=== PATIENT | male | born 1960 | race Caucasian/White ===

== ENCOUNTER 2021-10-31 12:30 | Emergency (ER) | payer OTHER ==
[~2021-10-31] VITALS: Ht 177.8 cm; Wt 56.7 kg
[~2021-10-31 12:30] MED LIST: CEPH500 PO; Cyclobenzaprine5 MG; DULO60 PO; GABA300 PO; HYDCHL25 PO; LORA1 PO; MELA3 PO; METO25ER PO; NAPR500 PO; Omeprazole20 M1 PO; SULTRIDS PO; TRAZ50 PO
== END 2021-10-31 14:18 | disposition home or self-care (01) ==
LOC: ER 12:30
DX: S70.02XA Contusion of left hip, initial encounter (principal); I10 Essential (primary) hypertension; Z88.8 Allergy status to other drugs, medicaments and biological substances; Z79.899 Other long term (current) drug therapy; W19.XXXA Unspecified fall, initial encounter
CPT/HCPCS: 73502; 99283

== ENCOUNTER 2021-11-03 14:30 | Emergency (ER) | payer OTHER ==
[~2021-11-03] VITALS: Ht 177.8 cm; Wt 54.4 kg
[2021-11-03 15:53] LABS: BASOPHILS ABSOLUTE AUTO 0.04 K/mm3 (0.00-0.23); BASOPHILS PERCENT AUTO 1 % (0-2); EOSINOPHILS ABSOLUTE AUTO 0.02 K/mm3 (0.00-0.68); EOSINOPHILS PERCENT AUTO 0 % (0-6); Hematocrit 35.8 % (37.0-53.0); Hemoglobin 12.1 g/dL (13.5-17.5); IMMATURE GRAN ABSOLUTE AUTO 0.02 K/mm3 (0.00-0.10); IMMATURE GRAN PERCENT AUTO 0 % (0-1); LYMPHOCYTES ABSOLUTE AUTO 1.44 K/mm3 (0.84-5.20); LYMPHOCYTES PERCENT AUTO 21 % (21-46); MONOCYTES ABSOLUTE AUTO 0.88 K/mm3 (0.16-1.47); MONOCYTES PERCENT AUTO 13 % (4-13); Mean Corpuscular HGB 31.8 pg (26.0-34.0); Mean Corpuscular HGB Conc 33.8 g/dL (31.5-36.5); Mean Corpuscular Volume 94 fL (80-100); NEUTROPHILS ABSOLUTE AUTO 4.47 K/mm3 (1.96-9.15); NEUTROPHILS PERCENT AUTO 65 % (41-73); Platelet Count 210 K/mm3 (150-400); RDW Coefficient Variation 13.1 % (11.7-14.2); RDW Standard Deviation 44.9 fL (35.1-46.3); White Blood Cell Count 6.87 K/mm3 (4.00-11.30)
[2021-11-03 15:57] LABS: Albumin, Blood 4.4 g/dL (3.4-5.0); Albumin/Globulin Ratio 1.5 (0.8-1.8); Bilirubin, Total 1.3 mg/dL (0.1-1.0); Bun/Creatinine Ratio 13.9 (12.0-20.0); Calcium, Blood 8.9 mg/dL (8.5-10.1); Creatinine, Blood 1.37 mg/dL (0.60-1.20); Globulin, Blood 2.9 g/dL (2.2-4.0); Potassium, Blood 3.6 mmol/L (3.5-5.5); Total Protein, Blood 7.3 g/dL (6.4-8.2); Troponin I 0.058 ng/mL (0.000-0.040)
[2021-11-03] MEDS ORDERED: ASPIR 8181 M1 PO (17:29)
[2021-11-03] MEDS ORDERED: Nitrostat0.4 MG SL (17:29)
== END 2021-11-03 17:30 | disposition home or self-care (01) ==
LOC: ER 14:30
PROVIDERS: Physician Assistant
DX: R07.89 Other chest pain (principal); R77.8 Other specified abnormalities of plasma proteins; R11.2 Nausea with vomiting, unspecified; I10 Essential (primary) hypertension; Z79.899 Other long term (current) drug therapy; Z88.8 Allergy status to other drugs, medicaments and biological substances
CPT/HCPCS: 80053; 83690; 84484; 85025; 93005; 93010; 99285-25

== ENCOUNTER 2022-12-19 01:59 | Emergency (ER) | payer OTHER ==
[~2022-12-19] VITALS: Ht 177.8 cm; Wt 63.5 kg
[~2022-12-19 01:59] MED LIST changes: +ASPIR 8181 M1 PO; +LISI20 PO; +Nitrostat0.4 MG SL
== END 2022-12-19 06:38 | disposition home or self-care (01) ==
LOC: ER 01:59
DX: R68.83 Chills (without fever) (principal); I10 Essential (primary) hypertension; Z79.82 Long term (current) use of aspirin; Z79.899 Other long term (current) drug therapy
CPT/HCPCS: 99283

== ENCOUNTER 2023-01-06 16:24 | Emergency (ER) | payer OTHER ==
[~2023-01-06] VITALS: Ht 177.8 cm; Wt 66.7 kg
[2023-01-06 17:00] LABS: BASOPHILS ABSOLUTE AUTO 0.05 K/mm3 (0.00-0.23); BASOPHILS PERCENT AUTO 1 % (0-2); EOSINOPHILS ABSOLUTE AUTO 0.05 K/mm3 (0.00-0.68); EOSINOPHILS PERCENT AUTO 1 % (0-6); Hematocrit 37.8 % (37.0-53.0); IMMATURE GRAN ABSOLUTE AUTO 0.03 K/mm3 (0.00-0.10); IMMATURE GRAN PERCENT AUTO 0 % (0-1); LYMPHOCYTES ABSOLUTE AUTO 1.62 K/mm3 (0.84-5.20); LYMPHOCYTES PERCENT AUTO 20 % (21-46); MONOCYTES ABSOLUTE AUTO 0.84 K/mm3 (0.16-1.47); MONOCYTES PERCENT AUTO 10 % (4-13); Mean Corpuscular HGB 32.1 pg (26.0-34.0); Mean Corpuscular HGB Conc 34.4 g/dL (31.5-36.5); Mean Corpuscular Volume 93 fL (80-100); Mean Platelet Volume 10.5 fL (9.1-12.4); NEUTROPHILS ABSOLUTE AUTO 5.53 K/mm3 (1.96-9.15); NEUTROPHILS PERCENT AUTO 68 % (41-73); Platelet Count 205 K/mm3 (150-400); RDW Standard Deviation 44.5 fL (35.1-46.3); Red Blood Cell Count 4.05 M/mm3 (4.30-5.90); White Blood Cell Count 8.12 K/mm3 (4.00-11.30)
[2023-01-06 17:19] LABS: Albumin/Globulin Ratio 1.3 (0.8-1.8); Bilirubin, Total 0.8 mg/dL (0.1-1.0); Bun/Creatinine Ratio 25.4 (12.0-20.0); Calcium, Blood 9.2 mg/dL (8.5-10.1); Creatinine, Blood 1.14 mg/dL (0.60-1.20); Globulin, Blood 3.1 g/dL (2.2-4.0); Potassium, Blood 3.8 mmol/L (3.5-5.5); Total Protein, Blood 7.1 g/dL (6.4-8.2)
== END 2023-01-06 22:44 | disposition home or self-care (01) ==
LOC: ER 16:24
PROVIDERS: Student in an Organized Health Care Education/Training Program
DX: I10 Essential (primary) hypertension (principal); R07.9 Chest pain, unspecified; Z88.6 Allergy status to analgesic agent; Z79.899 Other long term (current) drug therapy; Z79.82 Long term (current) use of aspirin
CPT/HCPCS: 36415; 71046; 80053; 84484; 85025; 93005; 93010; 99285-25

== ENCOUNTER 2023-02-09 11:19 | Emergency (ER) | payer OTHER ==
[~2023-02-09] VITALS: Ht 177.8 cm; Wt 68.0 kg
== END 2023-02-09 14:38 | disposition home or self-care (01) ==
LOC: ER 11:19
DX: M54.2 Cervicalgia (principal); W18.30XA Fall on same level, unspecified, initial encounter; Z88.8 Allergy status to other drugs, medicaments and biological substances; Z79.899 Other long term (current) drug therapy; Z79.82 Long term (current) use of aspirin; I10 Essential (primary) hypertension
CPT/HCPCS: 70450; 72125

== ENCOUNTER 2023-03-30 09:20 | Inpatient (IN) | payer OTHER ==
[~2023-03-30] VITALS: Ht 177.8 cm; Wt 58.5 kg
[2023-03-30] MEDS ORDERED: metoprolol succinate ×2 (10:04)
[2023-03-30] MEDS ORDERED: NEURONTIN300 MG PO ×2 (10:04)
[2023-03-30 13:50] VITALS: BP 157/82
[2023-03-30 14:53] VITALS: BP 137/78
--- NOTE | 2023-03-30 15:20 | NUR ---
PT PLACED TO WALL SUCTION AT -20MM H2O PER DR. EDOUARD. OCCASSIONAL LEVEL 1 AIR LEAK PRESENT. PT TOLERATING WELL. PT REPORTS MINIMAL PAIN.
--- NOTE | 2023-03-30 15:58 | NUR ---
ARRIVAL TO ROOM PT ARRIVED TO THE FLOOR AT APPROX 1430. PT A&OX3, DID NOT KNOW THE YEAR, DATE, OR DAY. PT HAS A CHEST TUBE IN PLACE TO WATER SEAL L LATERAL, NO AIR LEAKAGE OR CREPITUS, DIMINISHED LUNG SOUNDS IN THE MID & BASES. PT AMB WITH FWW AT BASELINE. 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
--- NOTE | 2023-03-30 16:30 | NUR ---
DR. EDOUARD ROUNDED DR. EDOUARD NOTIFIED OF OCCASIONAL LOW HR ON MONITOR DOWN TO 37, UNSURE IF THIS IS ACCURATE, PT PLACED ON TELE FOR SAFETY.
--- NOTE | 2023-03-30 17:58 | NUR ---
SHIFT SUMMARY PT IS A&OX3, PLEASANT, AND APPROPRIATE. PT NEEDED REORINTATION TO THE CALL LIGHT DURING SHIFT. PT ATTEMPTED TO GET OUT OF BED THROUGHOUT SHIFT AND BED ALARM WAS PUT ON. PT DID NOT KNOW THE YEAR, DATE, OR DAY. PT HAS A HX OF PARKINSON'S AND HAS HAD A STROKE. PT'S SPEECH IS SLOW AND SLURRED. PT HAS A CHEST TUBE IN PLACE TO WATER SEAL L LATERAL, NO AIR LEAKAGE, OR CREPITUS, DIMINISHED LUNG SOUNDS IN THE MID AND BASES. PT IS VOIDING APPROPRIATELY AND TOLERATING PO. PT AMB WITH A WALKER AT BASELINE. PT'S PAIN MANAGED WITH TORADOL. WILL CONTNUE TO MONITOR AND REPORT TO THE ONCOMING RN.
[2023-03-30 19:43] VITALS: BP 152/83
[2023-03-30] MEDS ORDERED: METO50ER PO ×2 (23:39)
[2023-03-31 03:02] VITALS: BP 147/89
--- NOTE | 2023-03-31 04:36 | NUR ---
SUMMARY NO ACUTE EVENTS THIS SHIFT, PIGTAIL DRAIN TO LEFT SIDE, SX AT -20, WNL. SEROSANGUINEOUS DRAINAGE IN TUBING. SATS REMAIN ABOVE 95% ON RA. DENIES SOB, AND CHEST PAIN. PULSE OX AND TELE IN PLACE. PATIENT UP TO [facility] WITH 2 ASSIST TO VOID. SCD'S IN PLACE, BED ALARM ON FOR SAFETY VSS, CALL LIGHT IN REACH.
[2023-03-31 07:23] VITALS: BP 150/90
--- NOTE | 2023-03-31 11:46 | NUR ---
PT WORKED WITH PHYSICAL THERAPY. HE WAS ABLE TO GET OOB AND TO THE CHAIR WITH A 1 PERSON ASSIST AND NURSE ASSIST TO MANAGE CHEST TUBE. PT TOLERATED THERAPY WELL. NO CHANGES IN CHEST TUBE AFTER THERAPY. PT SITTING UP TO THE CHAIR.
[2023-03-31 13:55] VITALS: BP 145/88
--- NOTE | 2023-03-31 15:45 | NUR ---
PT'S SISTER LARS BERGMAN CONTACTED THIS RN FOR AN UPDATE REGARDING PT STATUS AND CONCERNS FOR HIS HEALTH AND SAFETY. SHE STATED THAT SHE IS CONCERNED THE PATIENT IS NOT SAFE TO LIVE ALONE. PT DOES NOT WISH HEALTH INFORMATION TO BE SHARED WITH HIS FAMILY AT THIS TIME. LARS WAS EDUCATED THAT INFORMATION COULD NOT BE SHARED. LARS REQUESTED TO TALK TO THE LOGGER ALL [employer], SHE WAS EDUCATED THAT SHE COULD SHARE HER CONCERNS BUT THE [employer] CANNOT PROVIDE PT INFORMATION. THIS MESSAGE AND LARS'S PHONE NUMBER WERE RELAYED TO JUSTO RAMOS. JUSTO RAMOS WAS NOTIFIED THAT PT'S HEALTH INFORMATION IS NOT TO BE DISCUSSED WITH PT'S FAMILY. LARS IS PT'S NEXT OF KIN, HER PHONE NUMBER IS [phone].
--- NOTE | 2023-03-31 15:58 | NUR ---
URINARY RETENTION PT HAS ATTEMPTED TO VOID MULTIPLE TIMES TODAY, HE HAS VOIDED SMALL AMOUNTS BUT HAS FREQUENCY/URGENCY. PT REPORTS HE VOIDS OFTEN AT HOME. BLADDER SCAN SHOWED >955ML OF URINE IN THE BLADDER. PT REFUSED CATHETERIZATION. PT WAS PROVIDED WITH EDUCATION REGARDING RISKS OF BEING UNABLE TO EMPTY HIS BLADDER. PT SOMEWHAT RECEPTIVE TO EDUCATION AND CONTINUED TO DECLINE STRAIGHT CATH. PT EDUCATED ABOUT THE POSSIBILITY OF USING FLOMAX, HE WAS RECEPTIVE TO THAT OPTION. DR. EDOUARD NOTIFIED AND ORDERED FLOMAX FOR PT. PT REPORTS THAT HE HAS BEEN CATHETERIZED BEFORE AND IS WAS A BAD EXPERIENCE. PT EDUCATED THAT LIDOCAINE COULD BE USED TO INCREASE COMFORT. PT REPORTED HAVING A BURNING SENSATION FOR A DURATION OF TIME AFTER A PREVIOUS CATHETERIZATION. PLAN TO BLADDER SCAN PATIENT AT [address] EDOUARD REQUEST.
--- NOTE | 2023-03-31 17:10 | NUR ---
SHIFT SUMMARY PT REMAINS IN THE HOSPITAL R/T TRAUMATIC PNEUMOTHORAX. PAIN MANAGED WITH NORCO. PT IS ANXIOUS ABOUT NURSING CARE BUT RESPONDS WELL TO EDUCATION AND THERAPEUTIC LISTENTING. PT IS A PERSON ASSIST WHEN OOB, HE REQUIRES ASSISTANCE WITH LINES AND TUBES AND HAS AN UNSTEADY GAIT. GAIT BELT AND WALKER USED WHEN PT IS OOB. PT IS RETAINING URINE (SEE NOTE). WILL MONITOR UNTIL REPORT TO NOC RN.
--- NOTE | 2023-03-31 19:00 | NUR ---
AMA, TESFAYE LARSEN PT EXPRESSED HIS DESIRE TO LEAVE THE HOSPITAL TONIGHT. PT PROVIDED EDUCATION ABOUT THE RISKS OF LEAVING THE HOSPITAL AND THAT HE CANNOT LEAVE WITH A CHEST TUBE IN PLACE. HE WAS ALSO PROVIDED WITH EDUCATION ABOUT THE RISKS OF NOT BEING ABLE TO EMPTY HIS BLADDER AND THE BENIFITS OF USING A CATHETER. PT CONTINUED TO EXPRESS CONCERNS THAT HE HAS HAD BURNING WITH URINATION AFTER A PREVIOUS CATHETER INSERTION. PT CONTINUES TO WANT TO DISCHARGE HOME DESPITE EDUCATION AND STAFF CONCERNS. PT WAS EDUCATED THAT WITHOUT PROPER MEDICAL TREATMENT HIS CONDITION COULD WORSEN AND POTENTIALLY LEAD TO . PT ADVISED THAT IF HE DID WANT TO LEAVE STAFF NEEDED TO REACH OUT TO DR. EDOUARD SO THAT HIS CHEST TUBE COULD BE REMOVED PRIOR TO DISCHARGE. PT STATED THAT HIS SISTER WAS WILLING TO COME PICK HIM UP FROM THE HOSPITAL. HE ALSO REQUESTED THAT STAFF UPDATE HIS SISTER REGARDING HIS MEDICAL CONDITION AND WISH TO DISCHARGE HOME TONIGHT; PT PREVIOUSLY INSTRUCTED STAFF TO NOT SHARE INFORMATION WITH HIS SISTER. CONOR KEITH RN WAS REQUESTED AT THE BEDSIDE. CONOR WAS UPDATED REGARDING PT'S CONDITION AND WISHES TO RETURN HOME. CONOR WAS ALSO PRESENT WHEN PT VERBALLY REQUESTED THIS RN TO CONTACT HIS SISTER LARS AND WITNESSED THE PATIENT SIGN THE CONSENT TO RELEASE INFORMATION FORM TO ALLOW STAFF TO TALK WITH HIS SISTER LARS. THIS RN VERBALLY CLARIFIED WITH THE PATIENT WHAT PORTIONS OF HIS HOSPITAL STAY/HEALTH INFORMATION WAS OK TO DISCUSS. PT STATED OK FOR THIS RN TO DISCUSS URINARY RETENTION AND THE REASON FOR HIS STAY IN THE HOSPITAL. CONOR KEITH RN LEFT THE ROOM AFTER THIS DISCUSSION. THIS RN DISCUSSED WITH PT THE PROCESS OF LEAVING [facility] AND THAT THE DOCTOR WOULD NEED TO REMOVE THE CHEST TUBE PRIOR TO PT LEAVING. THIS RN EXPLAINED THAT DR. EDOUARD NEEDED TO BE CALLED TO REMOVE THE CHEST TUBE. PT BEGAN TO GET AGGITATED STATING HE WANTED TO LEAVE IMMEDIATELY. THIS RN ATTEMPTED TO EDUCATE THE PATIENT ABOUT HIS CHEST TUBE AND THIS RISK OF IT BEING PULLED OUT. PT CONTINUED TO ESCALATE AND ATTEMPTED TO GET OOB. THIS RN CALLED FOR ASSISTANCE FROM THEORETICAL PHYSICIST CONOR. PT STATED "DO YOU WANT ME TO SOCK YOU?" WHEN THIS RN ATTEMPTED TO DISSUADE PT FROM LEAVING FOR HIS SAFETY. TESFAYE LARSEN CALLED FOR PT AND STAFF SAFETY. CONOR RN AT BEDSIDE AND PT AGREED TO SIT AT THE EDGE OF THE BED AND EAT HIS DINNER WHILE STAFF REACHED OUT TO DR. EDOUARD. ELLIOTT SHELTON NURSING PSYCHIATRIC SOCIAL WORKER PRESENT, SECURITY PRESENT AND WAITED IN HALWAY. CONOR MONET REMAINED WITH PT WHILE DR. EDOUARD WAS CONTACTED. DR. EDOUARD STATED TO SPEAK TO NURSING PSYCHIATRIC SOCIAL WORKER ABOUT REMOVAL OF CHEST TUBE IF PT IS UNWILLING TO STAY. ORDER FOR ATIVAN AND MELATONIN RECIEVED FROM DR. EDOUARD. PT HAD REPORTED ANXIETY T/O THE DAY, HE HAD BEEN OFFERED ANXIETY MEDICATION BUT HAD DECLINED BECAUSE HE STATED HE DID NOT WANT MEDICATION THAT WOULD CAUSE DROWSINESS. ATIVAN WAS TAKEN TO PT'S ROOM AND OFFERED, PT DECLINED ATIVAN BECAUSE HE HAS TAKEN IT BEFORE AND IT MADE HIM DROWSY AND CAUSED "COTTON MOUTH." PT ADVISED THAT A SMALL DOSE WAS ORDERED IN AN EFFORT TO AVOID DROWSINESS, PT CONTINUED TO DECLINE. ATIVAN WASTED SINCE PT DECLINED. PT STARTED TO BECOME LESS AGGITATED AND DECIDED TO REMAIN IN BED, WHILE CONTINUING TO STATE HE WANTS TO LEAVE TONIGHT. PT'S SISTER WAS CONTACTED AND UPDATED REGARDING THE SITUATION PER PT REQUEST: SHE STATED SHE WOULD CALL THE PATIENT AND TALK WITH HIM ABOUT REMAINING IN THE HOSPITAL AND TO REINFORCE EDUCATION. SHE ALSO DECLINED TO PICK PATIENT UP FROM THE HOSPITAL AND TAKE HIM HOME. PT REPORTS UNDERSTANDING EDUCATION BUT APPEARS TO FORGET/HAVE LIMITED UNDERSTANDING, EVIDENCED BY ASKING QUESTIONS THAT HAVE BEEN PREVIOUSLY ANSWERED, AND CONTINUING WITH ACTIONS THAT COULD RESULT IN IMMEDIATE/LIFE THREATENING DANGER TO PT. PT IS FREQUENTLY FORGETFUL, HE ATTEMPTS TO GET OOB INSTEAD OF USE HIS CALL LIGHT. HE IS ALERT AND ORIENTED X3, PT REORIENTED TO DATE. REPORT GIVEN TO STEVEN SANCHES. BED ALARM IN PLACE. CALL LIGHT AND PHONE WITHIN REACH.
[2023-03-31 19:35] VITALS: BP 138/79
--- NOTE | 2023-03-31 22:20 | NUR ---
URINARY RETENTION: PT TAKEN TO BSC. HAD VERY LOW URINARY OUTPUT AND PT EXPRESSED DIFFICULTY URINATING. REPORTS THAT SINCE STROKE RETENTION HAS BEEN AN ISSUE AT BASELINE. BLADDER SCAN COMPLETED AND REPORTED >694 FOR VOLUME. PT EDUCATED ON THE NEED FOR A STRAIGHT CATH AND THE BENEFITS. PT CONTINUES TO DECLINE CATHETER AT THIS TIME, AND EXPRESSES CONCERN DUE TO PREVIOUS EXPERIENCE. PT REPORTS THAT AFTER LAST EXPEREINCE HE HAD PAIN, DIFFICULTY URINATING, AND GENERALIZED DISCOMFORT. DISCUSSED NEED OF STRAIGHT CATHETER WITH PT, EDUCATED PT ON THE NEED AND THE RISK VS. BENEFIT, PT VERBALIZED UNDERSTANDING AND CONTINUES TO DECLINE AT THIS TIME.
[2023-03-31 23:22] VITALS: BP 116/64
--- NOTE | 2023-03-31 23:30 | NUR ---
VTACH: PROVIDER CONTACT: [employer] CALLED AT [phone] TO INFORM THIS RN THAT THE PT HAD A RUN OF VTACH THAT LASTED APPROXIMATELY 3 SECONDS AND 11 BEATS. PT IS ASYMPTOMATIC. VITALS WERE TAKEN AND ARE STABLE. PT DENIES CHEST PAIN, SOB, OR DIZZINESS. PROVIDER NOTIFIED OF EPISODE. ALSO DISCUSSED THE PT REFUSAL OF STRAIGHT CATH AND RETENTION OF URINE. INFORMED PROVIDER OF LAST BLADDER SCAN OF >694. PROVIDER STATES THAT PT NEEDS THE STRAIGHT CATH. WILL CONTINUE TO ENCOURAGE INTERVENTION WITH THE PT. HOWEVER, PT CONTINUES TO DECLINE AT THIS TIME. WILL CONTINUE ENCOURAGEMENT. NO NEW ORDERS AT THIS TIME.
--- NOTE | 2023-03-31 23:54 | NUR ---
URINARY RETENTION/EDUCATION WITH PT: DISCUSSED THE NEED FOR A STRAIGHT CATH AGAIN WITH THE PT. EDUCATED THE PT ON THE RISKS ASSOCIATED WITH RETENTION OF BLADDER. DISCUSSED PAIN, BLADDER DISTENTION, AND INFECTION. DISCUSSED DR. FAJARDO'S ENCOURAGEMENT OF THE CATHETER WITH THE PT. ADVISED THE PT THAT I DISCUSSED THE ISSUE WITH THE PROVIDER AND THIS INTERVENTION WAS RECCOMENDED. PT CONTINTUES TO DECLINE. REPORTS UNDERSTANDING OF THE EDUCATION AND RISKS ASSOCIATED.
--- NOTE | 2023-04-01 00:15 | NUR ---
REPORT GIVEN TO ESTELA HIRSCH RN TO ASSUME CARE OF THE PT AT THIS TIME. PT RESTING WITH CALL LIGHT IN REACH, BED IN LOWEST POSITION, AND BED ALARM ON.
--- NOTE | 2023-04-01 00:23 | NUR ---
ASSUMED CARE AT @0025, REPORT RECEIVED FROM SHELDON MONET. CHEST TUBE TO WATER SEAL IS WNL, PATIENT IS SLEEPING COMFORTABLY AT THIS TIME WITH BEDALARM ON AND CALL LIGHT IN REACH.
--- NOTE | 2023-04-01 01:14 | NUR ---
PATIENT VOIDED 500 IN BSC, BLADDER SCAN PVR SHOWS 616MLS, PATIENT DOES REFUSE STRAIGHT CATH AT THIS TIME. EDUCATED PATIENT ON RISKS OF BLADDER DISTENTION AND ASSOCIATED PAIN. DENIES CATH, WILL CONT. TO MONITOR AND TREAT PER ORDERS.
[2023-04-01 03:30] VITALS: BP 127/67
--- NOTE | 2023-04-01 03:53 | NUR ---
SUMMARY NO ACUTE EVENTS SINCE LAST NOTE, CHEST TUBE TO WATER SEAL, WNL. PATIENT ABLE TO SLEEP THIS SHIFT. MEDICATED FOR PAIN PRN. TOLERATES PO INTAKE. VOIDS USING BSC. DENIES SOB, BED ALARM IS ON. CALL LIGHT IS IN REACH. WILL CONT TO MONITOR AND TREAT PER ORDERS.
--- NOTE | 2023-04-01 08:00 | NUR ---
DR. EDOUARD CAME INTO THE ROOM AND REMOVED PATIENTS CHEST TUBE AT BEDSIDE AFTER RECIEVEING THE RESULTS OF HIS MORNING X-RAY. PATIENT TOLERATED THE PROCEDURE WELL. HE HAS GAUZE AND TEGADERM OVER INCISION AND IS C/D/I. HE IS SITTING UP IN THE CHAIR WITH CALL LIGHT IN REACH EATING BREAKFAST NOW.
[2023-04-01] MEDS ORDERED: Norco 5-325 Ta1 EACH PO ×2 (08:03)
--- NOTE | 2023-04-01 12:15 | NUR ---
PATIENT CONSENT STATEMENT. PATIENT CONSENTED THIS 2ND YEAR [employer] TO PARTICIPATE IN HIS CARE TODAY.
[2023-04-01] MEDS ORDERED: TAMS.4ER PO ×2 (12:40)
[2023-04-01 14:06] VITALS: BP 128/87
[2023-04-01 16:15] VITALS: BP 147/90
--- NOTE | 2023-04-01 16:43 | NUR ---
Spiritual Care | Nurse Request Pt. is at the doorway looking to leave the room. Pt. displays evidence of being agitated about his discharge. Pt. attempts to contact his sister by phone and verbalizes in his message to have her make arrangements to "get him a wolf." Though Pt. is difficult to understand, through theraputic listening and a calming presence I facilitated a life review, and pt. displayed evidence of lower anxiety and a calmed mood. Transport arrived to take him home. Pt. became more anxious and agitated. Security and visiting housekeeper are present to work with Pt.
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
== END 2023-04-01 16:52 | disposition home or self-care (01) | DRG 200 ==
LOC: ER 09:20 → SURS 09:21
PROVIDERS: ADMIT Surgery
PROC: 0W9B30Z Drainage of Left Pleural Cavity with Drainage Device, Percutaneous Approach (ICD-10-PCS; principal; 2023-03-30)
DX: S27.2XXA Traumatic hemopneumothorax, initial encounter (principal); S22.42XA Multiple fractures of ribs, left side, initial encounter for closed fracture; G10 Huntington's disease; I10 Essential (primary) hypertension; K21.9 Gastro-esophageal reflux disease without esophagitis; H54.7 Unspecified visual loss; Y04.8XXA Assault by other bodily force, initial encounter; Z90.49 Acquired absence of other specified parts of digestive tract; Z88.8 Allergy status to other drugs, medicaments and biological substances; Z86.73 Personal history of transient ischemic attack (TIA), and cerebral infarction without residual deficits; Z79.899 Other long term (current) drug therapy; Z79.811 Long term (current) use of aromatase inhibitors; Z79.82 Long term (current) use of aspirin
CPT/HCPCS: 32551; 71045; 71046; 71101; 71260; 72125; 93005; 93010; 94760; 96374-59; 96375-59; 97116; 97162; 97166; 97530; 97535; 99285-25; A9270; G0378; J1170; J1885; J2060; J2405; Q9967

== ENCOUNTER 2023-04-02 12:27 | Emergency (ER) | payer OTHER ==
[~2023-04-02] VITALS: Ht 172.7 cm; Wt 54.4 kg
[~2023-04-02 12:27] MED LIST changes: +METO50ER PO; +NEURONTIN300 MG PO; +Norco 5-325 Ta1 EACH PO; +TAMS.4ER PO; +metoprolol succinate
[2023-04-02 12:32] VITALS: BP 102/73
== END 2023-04-02 14:06 | disposition home or self-care (01) ==
LOC: ER 12:27
DX: S22.42XA Multiple fractures of ribs, left side, initial encounter for closed fracture (principal); I10 Essential (primary) hypertension; Z88.6 Allergy status to analgesic agent; Z79.899 Other long term (current) drug therapy; W01.198A Fall on same level from slipping, tripping and stumbling with subsequent striking against other object, initial encounter
CPT/HCPCS: 71045; 73030; 99283-25; A9270

== ENCOUNTER 2023-04-09 01:18 | Emergency (ER) | payer OTHER ==
[~2023-04-09] VITALS: Ht 172.7 cm; Wt 72.6 kg
[2023-04-09 05:15] VITALS: BP 148/77
== END 2023-04-09 06:42 | disposition home or self-care (01) ==
LOC: ER 01:18
DX: M54.2 Cervicalgia (principal); R29.6 Repeated falls; Z88.8 Allergy status to other drugs, medicaments and biological substances; Z79.899 Other long term (current) drug therapy
CPT/HCPCS: 99283